=== PATIENT | female | born 1975 | race Hispanic/Latino ===

== ENCOUNTER 2018-02-03 17:32 | Emergency (ER) | payer BC ==
[2018-02-03 17:46] VITALS: BP 121/75; PULSE 72; RESP 20; TEMP 98.4; O2SAT 99
== END 2018-02-03 18:34 | disposition left against medical advice (07) ==
LOC: SUPCPDRO 17:32 → H.ER 17:32
DX: Z02.89 Encounter for other administrative examinations (principal)